=== PATIENT | female | born 1950 | race Caucasian/White ===

== ENCOUNTER → 2022-04-02 | Outpatient (CLI) | payer MEDICARE, BC, OTHER | LOC: M RAD 13:19 | PROVIDERS: ATTEND Physician Assistant Medical | DX: J32.0 Chronic maxillary sinusitis (principal) ==

== ENCOUNTER → 2022-12-09 | Outpatient (REF) | payer MEDICARE, OTHER | LOC: M LAB REF 13:07 | PROVIDERS: ATTEND Urology | DX: R31.9 Hematuria, unspecified (principal) ==

== ENCOUNTER 2023-04-25 11:17 | Day surgery (SDC) | payer MEDICARE, BC ==
[~2023-04-25] VITALS: Ht 160 cm; Wt 61.9 kg
[~2023-04-25 11:17] MED LIST: AMLO1TAB24 PO; ATOR1TAB19 PO; C-251TAB PO; CLON0.5T17 PO; CVS-161 PO; GABA600T4 PO; IBUP80TA PO; LOSA25TA13 PO; NITR0.1S SL; OMEP40CA5 PO; OYST1TAB PO; REST0.05 OU; SLOWTAB2 PO; SYST1SOL OU; VITA200020 PO
[2023-04-25] MEDS ORDERED: LR 1,000 ML IV SCH (12:25)
[2023-04-25] MEDS ORDERED: propofoL 200 MG/20 ML VIAL As Ordered ONE (13:39)
[2023-04-25] MEDS ORDERED: MIDAZOLAM INJ 2MG/2ML VIAL As Ordered ONE (13:39)
[2023-04-25] MEDS ORDERED: fentaNYL 100 MCG/2 ML INJECTION As Ordered ONE (13:39)
[2023-04-25] MEDS ORDERED: ROCURONIUM BROMIDE 50MG/5ML VIAL As Ordered ONE (13:39)
[2023-04-25] MEDS ORDERED: ONDANSETRON 4MG 2ML VIAL As Ordered ONE (13:39)
[2023-04-25] MEDS ORDERED: LIDOCAINE 2% 100MG/5ML SDV (FOR ANES.) As Ordered ONE (13:39)
[2023-04-25] MEDS ORDERED: dexmedeTOMIDine (4MCG/ML)200MCG/50ML BTL (PRECEDEX) As Ordered ONE (13:44)
[2023-04-25] MEDS ORDERED: LIDOCAINE W/EPINEPHRINE 1% 20ML VIAL As Ordered ONE (15:00)
[2023-04-25] MEDS ORDERED: METHYLENE BLUE 0.5% (5MG/ML) 10 ML AMP (PROVAYBLUE) As Ordered ONE (15:00)
[2023-04-25] MEDS ORDERED: ACETAMINOPHEN 1000MG 100ML IV BAG As Ordered ONE (15:01)
[2023-04-25] MEDS: EPINEPHrine 1MG/ML INJ 30ML MD-VIAL As Ordered ONE (15:49)
[2023-04-25] MEDS ORDERED: SUGAMMADEX SODIUM 500 MG/5 ML VIAL (BRIDION) As Ordered ONE (16:03)
[2023-04-25] MEDS ORDERED: METOCLOPRAMIDE INJ 10MG/2ML VIAL As Ordered ONE (16:16)
[2023-04-25] MEDS ORDERED: ONDANSETRON 4MG 2ML VIAL IV PRN (17:05)
[2023-04-25] MEDS ORDERED: MORPHINE 2 MG/ML 1ML VIAL IV PRN (17:05)
[2023-04-25] MEDS ORDERED: fentaNYL 100 MCG/2 ML INJECTION IV PRN (17:05)
[2023-04-25] MEDS ORDERED: oxyCODONE 5MG TAB PO PRN (17:05)
[2023-04-25] MEDS: traMADol 50 MG TAB PO ONE (17:34)
[2023-04-25 18:05] VITALS: BP 136/68; TEMP 98.4; O2SAT 94
== END 2023-04-25 18:35 | disposition home or self-care (01) ==
LOC: M SDC 11:17
PROVIDERS: ATTEND Otolaryngology
DX: J01.01 Acute recurrent maxillary sinusitis (principal); J01.21 Acute recurrent ethmoidal sinusitis; B96.5 Pseudomonas (aeruginosa) (mallei) (pseudomallei) as the cause of diseases classified elsewhere; B96.6 Bacteroides fragilis [B. fragilis] as the cause of diseases classified elsewhere; Z87.891 Personal history of nicotine dependence; Z79.899 Other long term (current) drug therapy; Z88.8 Allergy status to other drugs, medicaments and biological substances
CPT/HCPCS: 31255; 31267; 61782; 87070; 87075; 87076; 87077; 87102; 87186; 87205; 88305; C2625; J0131; J0171; J1100; J2250; J2405; J2765; J3010; Q9968

== ENCOUNTER → 2024-01-03 | Outpatient (REF) | payer MEDICARE, BC, OTHER ==
[~2024-01-03] MED LIST changes: +GABA-1490 PO; -GABA600T4 PO
== END ==
LOC: M LAB REF 11:38
PROVIDERS: ATTEND Urology
DX: C67.9 Malignant neoplasm of bladder, unspecified (principal)

== ENCOUNTER → 2024-06-15 | Outpatient (REF) | LOC: M CFLAB 12:31 | DX: C67.9 Malignant neoplasm of bladder, unspecified (principal) ==